=== PATIENT | male | born 1995 | race Caucasian/White ===

== ENCOUNTER 2019-11-08 03:15 | Inpatient (IN) | payer BC ==
--- NOTE | 2019-11-08 03:50 | ED ---
Psych HPI - General Source: patient, EMS Mode of arrival: EMS <Mahamed Guillaume - Last Filed: 11/08/19 03:44> <David Callaway - Last Filed: 11/14/19 05:27> - General Chief Complaint: Psychiatric Symptoms Stated Complaint: Mental Health Time Seen by Provider: 11/08/19 03:44 - History of Present Illness Initial Comments: Patient is a 24-year-old male presenting to emergency Department with chief complaint of suicidal thoughts. Patient states she has been stressed lately with paying his bills and is grossly. Patient states prior to ED arrival, he was face timing his ex girlfriend when he got into an argument and felt overwhelmed. Patient states he pointed a loaded gun to his head. The ex- girlfriend called the police. Patient states that the time the police and EMS got to his house, he had already put the gun away. Patient states he complied and came straight to the ED. Patient denies any history of suicidal thoughts or ideations. Denies any homicidal thoughts or ideations. Patient has no other complaints at this time (Mahamed Guillaume) - Related Data Previous Rx's Medication Instructions Recorded Nicotine Polacrilex [Nicorette] 2 mg BUCCAL Q4HR PRN 14 Days gum 11/10/19 Sertraline [Zoloft] 50 mg PO DAILY 28 Days tab 11/10/19 Allergies Allergy/AdvReac Type Severity Reaction Status Date / Time No Known Allergies Allergy Unverified 11/08/19 16:20 Review of Systems ROS Other: All systems not noted in ROS Statement are negative. <Mahamed Guillaume - Last Filed: 11/08/19 03:44> ROS Other: All systems not noted in ROS Statement are negative. <David Callaway - Last Filed: 11/14/19 05:27> ROS Statement: Those systems with pertinent positive or pertinent negative responses have been documented in the HPI. Past Medical History Past Medical History: No Reported History History of Any Multi-Drug Resistant Organisms: None Reported Past Surgical History: No Surgical Hx Reported Past Psychological History: No Psychological Hx Reported Smoking Status: Current every day smoker Past Alcohol Use History: Occasional Past Drug Use History: None Reported <Mahamed Guillaume - Last Filed: 11/08/19 03:44> General Exam Limitations: no limitations General appearance: alert, in no apparent distress Head exam: Present: atraumatic, normocephalic, normal inspection Eye exam: Present: normal appearance Pupils: Present: normal accommodation ENT exam: Present: normal exam Neck exam: Present: normal inspection, full ROM Respiratory exam: Present: normal lung sounds bilaterally Cardiovascular Exam: Present: regular rate, normal rhythm, normal heart sounds Extremities exam: Present: normal inspection, full ROM Back exam: Present: normal inspection, full ROM Neurological exam: Present: alert, oriented X3 Psychiatric exam: Present: normal affect, normal mood. Absent: depressed, agitated, anxious, flat affect Skin exam: Present: warm, dry, intact, normal color <Mahamed Guillaume - Last Filed: 11/08/19 03:44> Course Vital Signs 11/08/19 11/08/19 11/08/19 03:24 06:26 11:30 Temperature 98.1 F 98.2 F Pulse Rate 107 H 99 Pulse Rate [ 66 Left Sitting] Respiratory 18 18 20 Rate Blood Pressure 150/84 143/81 Blood Pressure 141/88 [Right Arm Sitting] O2 Sat by Pulse 97 97 98 Oximetry 11/08/19 11:39 Temperature 98.1 F Pulse Rate 88 Pulse Rate [ Left Sitting] Respiratory 18 Rate Blood Pressure 139/81 Blood Pressure [Right Arm Sitting] O2 Sat by Pulse 98 Oximetry Medical Decision Making <Mahamed Guillaume - Last Filed: 11/08/19 03:44> - Lab Data Result diagrams: 11/09/19 06:06 11/09/19 06:06 <David Callaway - Last Filed: 11/14/19 05:27> - Medical Decision Making Patient is 24-year-old male presenting to the emergency department for chief complaint of suicidal thoughts. Patient brought to the ED via EMS. Patient was face timing his ex-girlfriend when he got into an argument appointed a loaded gun to his head. Authorities were contacted and brought the patient to the ED. Denies history of suicidal thoughts or ideations. Has no complaints at this time. EPS is notified. At this time patient will be signed off to . (Mahamed Guillaume) I did see the patient for the purpose of following the clinical certificate. (David Callaway) Disposition <Mahamed Guillaume - Last Filed: 11/08/19 03:44> <David Callaway - Last Filed: 11/14/19 05:27> Clinical Impression: Mood disorder, Suicidal ideation Disposition: ADMITTED IP TO THIS HOSP Condition: Stable
[2019-11-08] MEDS ORDERED: ZIPRASIDONE 20 MG VIAL IM PRN (11:16)
[2019-11-08] MEDS ORDERED: LORazepam 1 MG TAB PO PRN (11:16)
[2019-11-08] MEDS ORDERED: MAG HYDROX/AL HYDROX/SIMETH 30 ML CUP PO PRN (11:16)
[2019-11-08] MEDS ORDERED: MAGNESIUM HYDROXIDE 2,400 MG/10 ML CUP PO PRN (11:16)
[2019-11-08] MEDS ORDERED: ACETAMINOPHEN TAB 325 MG TAB PO PRN (11:16)
[2019-11-08] MEDS ORDERED: NICOTINE POLACRILEX 2 MG GUM BUCCAL PRN (12:27)
[2019-11-08] MEDS ORDERED: MELATONIN 3 MG TABLET PO PRN (12:27)
--- NOTE | 2019-11-08 12:35 | P.HP ---
Psychiatric H&P - . 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 HPI: Patient presented to the hospital early this morning via EMS for suicidal ideations and depression. As per ER note patient was dealing with stressors including finances and having difficulties paying the bills. Patient also endorsed having fights with his girlfriend and apparently sent his girlfriend a picture of him holding a loaded gun to his head. Patient was agreeable to speak to bid writer on the unit and admitted to holding a gun to his head and states that after he did it "I immediately regretted it". He states that he "lost it yesterday" after going to a bar to eat food. He states that his mood has been "down" and states that his girlfriend left him and he has not been taking it well the past few weeks. Patient was guarded and concrete with his answers and was focused on discharge. Patient states that after he loaded the gun and put it to his head he put in [place] he was picked up by EMS and police after his ex-girlfriend called the probation and parole officer. He admits to a fair appetite and poor sleep at times and okay concentration. Patient denies any suicidal or homicidal ideations intent or plan. At this time patient denies any auditory or visual hallucinations. Patient denies any flight of ideas racing thoughts and increased in goal directed behavior. Patient admits to using cigarettes daily and alcohol occasionally, denies any other recreational substance use at this time. PAST PSYCHIATRIC HISTORY: Patient states that he does not have a mental health history and denies any previous inpatient psychiatric admissions. He states that he was previously on Adderall several years ago for ADHD however has not needed it any longer. He denies any psychiatric outpatient follow-up and denies any previous suicide attempts in the past. PMH:denies ALLERGIES: as per EMR CHEMICAL DEPENDENCY HISTORY: as per HPI FAMILY PSYCHIATRIC/SUBSTANCE USE HISTORY: denies SOCIAL HISTORY: Patient was born and raised in [place] and moved to [place]. He states that he has some college and dropped out after the first year. Patient is currently single has no kids and lives in a house and works 2 jobs to support himself. MENTAL STATUS EXAM: General Appearance: Patient appears to be stated age is alert, guarded. Patient appears to have poor hygiene and grooming. Behavior: Patient is seated without any agitated behavior. Guarded/evasive. Speech: Patient's speech is fluent and nonpressured. Mood/Affect: Patient reports their mood is depressed, affect is congruent and constricted. Suicidality/Homicidality: Patient denies having any homicidal ideation intent or plan. Denies any suicidal ideations intent or plan Perceptions: Patient denies any visual hallucinations and denies any auditory hallucinations Though content/process: There is no evidence of any delusional thought content and thought process is linear and goal-directed. Memory and concentration: AOX3, grossly intact for the purposes of this session. Can spell "WORLD" backwards Judgment and insight: poor STRENGTHS/WEAKNESSES: strength is that patient is resilient. Weakness is that patient has poor judgment and insight INTELLECT: average IMPRESSIONS: Major depressive disorder, without psychotic features Nicotine dependence PLAN: -Patient is admitted under voluntary status to [facility] for stabilization of psychiatric symptoms and safety. Patient signed adult voluntary form and medication consent and is placed in patient's chart. -Medications : Will start patient on Zoloft 50 mg daily for mood. -Ativan and Geodon PRN for agitation/aggression -Patient was informed of the risks, benefits and side effects of the medication and patient verbally consented to taking the medications. Patient signed med consent form and was placed in chart. -Internal Medicine consult to perform medical evaluation and physical. -NRT -Nicorette gum -SW on board for discharge planning. Encourage patient to participate in groups to work on coping skills. Likely discharge home when 2-3 days. Will need to ensure that the gun remains locked away at home prior to discharge. 11/08/19 12:28
[2019-11-08] MEDS: SERTRALINE 50 MG TAB PO SCH (12:49)
--- NOTE | 2019-11-08 17:06 | P.MDCNMH ---
History of Present Illness H&P Date: 11/08/19 Chief Complaint: medical management 24-year-old male with no significant PMH presents ED for suicidal ideation. He is admitted to mental health unit for subsequent workup and management. [facility] physicians has been consulted for medical management of this patient. Patient currently has no complaints. He denies any headache, lower extremity edema, nausea or vomiting, fever or chills, cough, chest pain, shortness of breath, palpitations, changes in urination or bowel habits. No changes in appetite or weight. No dizziness, numbness/weakness/tingling of extremities. Of note, patient reports smoking 1 pack of cigarettes daily for the past 7 years. He is refusing nicotine patch. States that he drinks 2-3 beers 2-3 times a week. Review of Systems Pertinent positives and negatives as discussed in HPI, a complete review of systems was performed and all other systems are negative. All systems: negative Past Medical History Past Medical History: No Reported History History of Any Multi-Drug Resistant Organisms: None Reported Past Surgical History: No Surgical Hx Reported Smoking Status: Current every day smoker Medications and Allergies Home Medications Medication Instructions Recorded Confirmed Type No Known Home Medications 11/08/19 11/08/19 History Allergies Allergy/AdvReac Type Severity Reaction Status Date / Time No Known Allergies Allergy Unverified 11/08/19 16:20 Physical Exam Vitals: Vital Signs Temp Pulse Pulse Resp BP BP Pulse Ox 11/08/19 11:39 98.1 F 88 18 139/81 98 11/08/19 11:30 98.2 F 66 20 141/88 98 11/08/19 06:26 99 18 143/81 97 11/08/19 03:24 98.1 F 107 H 18 150/84 97 Intake and Output 11/08/19 11/08/19 11/08/19 06:59 14:59 22:59 Other: Weight 86.183 kg 83.2 kg 83.2 kg General: [non toxic], [no distress], [appears at stated age] Derm: [warm], [dry] Head: [atraumatic], [normocephalic], [symmetric] Eyes: [EOMI], [no lid lag], [anicteric sclera] Mouth: [no lip lesion], [mucus membranes moist] Cardiovascular: [S1S2 reg], [no murmur], [positive posterior tibial pulse bilateral], Lungs: [CTA bilateral], [no rhonchi, no rales] , [no accessory muscle use] Abdominal: [soft], [ nontender to palpation], [no guarding], [no appreciable organomegaly] Ext: [no gross muscle atrophy], [no edema], [no contractures] Neuro: [ CN II-XI grossly intact], [no focal neuro deficits] Psych: [Alert], [oriented], [appropriate affect] Cranial Nerve Examination - Cranial Nerves Cranial Nerve II- Optic: Intact Cranial Nerve III- Oculomotor: Intact Cranial Nerve IV- Trochlear: Intact Cranial Nerve V- Trigeminal: Intact Cranial Nerve - Abducens: Intact Cranial Nerve VII- Facial: Intact Cranial Nerve VIII- Auditory: Intact Cranial Nerve IX- Glossopharyngeal: Intact Cranial Nerve X- Vagus: Intact Cranial Nerve XI- Accessory: Intact Cranial Nerve XII- Hypoglossal: Intact Assessment and Plan Assessment: Smoker Alcohol abuse Patient reports smoking pack of cigarettes daily for the past 7 years. I offered a nicotine patch but patient refuses. He does report drinking 3 beers 2-3 times a week. He is low risk for alcohol withdrawal. Psychiatry is following the patient for major depression and suicidal ideations. He is pending clinical improvement. Thank you for this consult. Please call with any additional questions or concerns.
[2019-11-09 07:11] LABS: Basophils # (A) 0.1 k/uL (0-0.2); Basophils % (A) 1 %; Eosinophils # (A) 0.3 k/uL (0-0.7); Eosinophils % (A) 4 %; HCT 47.9 % (39.0-53.0); HGB 16.1 gm/dL (13.0-17.5); Lymphocytes # (A) 2.7 k/uL (1.0-4.8); Lymphocytes % (A) 39 %; MCH 30.4 pg (25.0-35.0); MCHC 33.7 g/dL (31.0-37.0); MCV 90.4 fL (80.0-100.0); Mean Platelet Volume 7.3; Monocytes # (A) 0.6 k/uL (0-1.0); Monocytes % (A) 8 %; Neutrophils % (A) 44 %; Platelet Count 292 k/uL (150-450); RDW 12.2 % (11.5-15.5); WBC 6.9 k/uL (3.8-10.6)
[2019-11-09 07:25] LABS: ALT 25 U/L (4-49); AST 28 U/L (17-59); African American GFR (CKD) >90 (>60 ml/min/1.73 sqM); Albumin 4.8 g/dL (3.5-5.0); Alkaline Phosphatase 80 U/L (38-126); Anion Gap 11 mmol/L; Blood Urea Nitrogen 16 mg/dL (9-20); Calcium 9.9 mg/dL (8.4-10.2); Carbon Dioxide 26 mmol/L (22-30); Chloride 101 mmol/L (98-107); Glucose 93 mg/dL (74-99); Non-African American GFR(CKD) >90 (>60 ml/min/1.73 sqM); Potassium 4.3 mmol/L (3.5-5.1); Sodium 138 mmol/L (137-145); Total Bilirubin 0.9 mg/dL (0.2-1.3); Total Protein 7.8 g/dL (6.3-8.2)
[2019-11-09] MEDS: SERTRALINE 50 MG TAB PO SCH (08:48)
--- NOTE | 2019-11-09 10:51 | P.PN ---
Progress Note - Text Progress Note Date: 11/09/19 Interval History: Patient was seen attending group earlier this morning and was directable and a greeableto sports writer in the office. It appears to be more cooperative and appropriate during conversation. Patient spoke about his situation at home and also spoke about his gun which is still in the closet. Patient states that on he can have his mother remove the gun from his house. He also spoke about his mother coming to visit him today. He states that his mood has been improving since he started the medication. He states that he would like to remain on the same dose at this time. He denies any current side effects from medications. He states that he slept well throughout the night and denied any overnight complaints and claims to be eating well. At this time patient denies any suicidal or homical ideations, intent or plan. Patient denies any auditory, visual hallucinations and denies any paranoia or delusions. Patient denies any side effects from the medications and has been compliant with meds. Mental Status Exam: General Appearance: Patient appears to be stated age is alert, more directable and cooperative. Patient appears to have improving hygiene and grooming. Behavior: Patient is seated without any agitated behavior. Attempts to cooperate Speech: Patient's speech is fluent and nonpressured. Mood/Affect: Patient reports their mood is improving, affect is congruent and constricted. Suicidality/Homicidality: Patient denies having any homicidal ideation intent or plan. Denies any suicidal ideations intent or plan Perceptions: Patient denies any visual hallucinations and denies any auditory hallucinations Though content/process: There is no evidence of any delusional thought content and thought process is linear and goal-directed. More future Oriented Memory and concentration: AOX3, grossly intact for the purposes of this session. Judgment and insight: Improving mildly Assessment Major depressive disorder, without psychotic features Nicotine dependence Plan: -Patient continues to meet criteria for inpatient psychiatric admission for symptom stabilization and safety. Patient has signed adult voluntary form and medication consent and was placed in patient's chart. -Medications: Patient elected to continue on the same dose of Zoloft 50 mg daily for mood/anxiety. -When necessary Ativan and Geodon for agitation/aggression. -NRT -Nicorette gum -SW on board for discharge planning. Encourage patient to participate in groups to work on coping skills. Likely discharge home tomorrow. Will need to ensure that the gun at home is removed prior to discharge, delinquency prevention social worker to have patient sign release to speak to mother to have this matter taking care of.
[2019-11-09 12:25] LABS: Appearance,Urine Clear (Clear); Bilirubin,Urine Negative (Negative); Blood,Urine Negative (Negative); Color,Urine Light Yellow; Glucose,Urine (UA) Negative (Negative); Ketones,Urine Negative (Negative); Leukocyte Esterase,Urine Negative (Negative); Nitrite,Urine Negative (Negative); PH, Urine 6.5 (5.0-8.0); Protein,Urine Negative (Negative); Specific Gravity,Urine 1.014 (1.001-1.035); Urobilinogen,Urine <2.0 mg/dL (<2.0)
[2019-11-09 12:35] LABS: Amphetamine Screen,Urine Not Detected (NotDetected); Barbiturate Screen,Urine Not Detected (NotDetected); Benzodiazepines Screen,Urine Not Detected (NotDetected); Cocaine Screen,Urine Not Detected (NotDetected); Methadone Screen, Urine Not Detected (NotDetected); Opiate Screen,Urine Not Detected (NotDetected); Oxycodone Screen, Urine Not Detected (NotDetected); Phencyclidine Screen,Urine Not Detected (NotDetected); Tricyclic Antidepressant,Urine Not Detected (NotDetected); Urn Cannabinoid Scrn Not Detected (NotDetected)
[2019-11-10 07:11] VITALS: BP 114/55; PULSE 59; RESP 18; TEMP 98.4
[2019-11-10] MEDS: SERTRALINE 50 MG TAB PO SCH (08:08)
--- NOTE | 2019-11-10 10:08 | P.DS ---
Providers Date of admission: 11/08/19 11:10 Expected date of discharge: 11/10/19 Attending physician: Justin August MD Consults: 11/08/19 11:16 Consult Physician Routine Consulting Provider: Liborio Hartman Consult Reason/Comments: H and P Do you want consulting provider notified?: Yes Primary care physician: Physician Nonstaff - Discharge Diagnosis(es) (1) Major depressive disorder without psychotic features Current Visit: Yes Status: Acute Priority: High (2) Nicotine dependence Current Visit: Yes Status: Acute Priority: Low Hospital Course: Admission HPI: Patient is a 24-year-old male who is currently single and 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 Patient presented to the hospital early this morning via EMS for suicidal ideations and depression. As per ER note patient was dealing with stressors including finances and having difficulties paying the bills. Patient also endorsed having fights with his girlfriend and apparently sent his girlfriend a picture of him holding a loaded gun to his head. Patient was agreeable to speak to appeals writer on the unit and admitted to holding a gun to his head and states that after he did it "I immediately regretted it". He states that he "lost it yesterday" after going to a bar to eat food. He states that his mood has been "down" and states that his girlfriend left him and he has not been taking it well the past few weeks. Patient was guarded and concrete with his answers and was focused on discharge. Patient states that after he loaded the gun and put it to his head he put in [place] he [place] picked up by EMS and police after his ex-girlfriend called the head of marketing. He admits to a fair appetite and poor sleep at times and okay concentration. Patient denies any suicidal or homicidal ideations intent or plan. At this time patient denies any auditory or visual hallucinations. Patient denies any flight of id eas racing thoughts and increased in goal directed behavior. Patient admits to using cigarettes daily and alcohol occasionally, denies any other recreational substance use at this time. Hospital course: Upon admission to the unit patient was initially depressed and cooperative. Patient was directable and agreeable to commence treatment. Patient got along well with other patients on the unit and followed unit protocol. Patient was compliant with the medications and denied any side effects throughout hospital course. Patient was started on Zoloft 50 mg daily for mood and patient requested to stay at the same dose. Patient spoke of his stressors and engaged in therapy both group and individual. Patient was also seen by medical team for history and physical exam. Throughout the course of the hospitalization patient gradually improved with regards to mood, anxiety, sleep and became future oriented with improved insight and judgment. On the day of discharge patient denied any suicidal or homicidal ideations intent or plan denied any auditory or visual hallucinations. Patient endorsed wanting to live for his future and his job/career. The patient did have a gun which he placed in the closet or to leaving his house. Patient is agreeable to give mother the robertson to his house to remove his gun, family welfare social work professor arranging for this to occur. Detail Sergeant spoke with patient in depth about gun safety and patient was agreeable to have the gun removed. Patient denied any paranoia and did not endorse any delusions. Patient does not have a significant history of substance abuse however was counseled on abstaining from all substances including alcohol and marijuana. Patient was also counseled on the medications and need for regular compliance and was encouraged to follow-up with their outpatient appointment for mental health and also for primary care. Prior to discharge a family meeting will be arranged by family welfare social work professor to answer any questions and ensure safety upon discharge. Mental status exam: General Appearance: Patient appears to be stated age is alert, directable, and cooperative. Patient is in no acute distress and has fair hygiene and grooming Behavior: Patient is calmly seated without any agitated behavior. Speech: Patient's speech is fluent and nonpressured. Mood/Affect: Patient reports their mood is "good", affect is congruent and euthymic. Suicidality/Homicidality: Patient denies having any suicidal or homicidal ideation intent or plan. Perceptions: Patient denies any auditory or visual hallucinations. Though content/process: There is no evidence of any delusional thought content and thought process is linear and goal-directed. Memory and concentration: AOX3, grossly intact for the purposes of this session. Can spell "WORLD" backwards correctly. Judgment and insight: fair, improved Impression: Major depressive disorder, without psychotic features Nicotine dependence Plan: -Continue with discharge today as patient has improved and stabilized psychiatrically and is not currently an imminent threat to himself and/or others. -Continue medications: Zoloft 50 mg daily for mood/anxiety. -Patient was counseled on the need for medication compliance and appropriate follow-up at mental health and also primary care for medical issues. Patient verbalized understanding and agreed. -Social work to arrange for and conduct family meeting to ensure safety upon discharge and answer any questions/concerns. Social work also to arrange for patients follow up appointments for psychiatric care along with follow up with primary care provider. -Patient counseled on abstaining from recreational drugs and marijuana and alcohol. Was informed/educated on the adverse effects on their physical and mental health. Patient verbally agreed and understood. -Patient was instructed to return to the hospital or seek immediate medical care if their psychiatric or medical symptoms do worsen or reoccur. Allergies Allergy/AdvReac Type Severity Reaction Status Date / Time No Known Allergies Allergy Unverified 11/08/19 16:20 Laboratory Results WBC 6.9 k/uL (3.8-10.6) 11/09/19 06:06 RBC 5.30 m/uL (4.30-5.90) 11/09/19 06:06 Hgb 16.1 gm/dL (13.0-17.5) 11/09/19 06:06 Hct 47.9 % (39.0-53.0) 11/09/19 06:06 MCV 90.4 fL (80.0-100.0) 11/09/19 06:06 MCH 30.4 pg (25.0-35.0) 11/09/19 06:06 MCHC 33.7 g/dL (31.0-37.0) 11/09/19 06:06 RDW 12.2 % (11.5-15.5) 11/09/19 06:06 Plt Count 292 k/uL (150-450) 11/09/19 06:06 Neutrophils % 44 % 11/09/19 06:06 Lymphocytes % 39 % 11/09/19 06:06 Monocytes % 8 % 11/09/19 06:06 Eosinophils % 4 % 11/09/19 06:06 Basophils % 1 % 11/09/19 06:06 Neutrophils # 3.0 k/uL (1.3-7.7) 11/09/19 06:06 Lymphocytes # 2.7 k/uL (1.0-4.8) 11/09/19 06:06 Monocytes # 0.6 k/uL (0-1.0) 11/09/19 06:06 Eosinophils # 0.3 k/uL (0-0.7) 11/09/19 06:06 Basophils # 0.1 k/uL (0-0.2) 11/09/19 06:06 Sodium 138 mmol/L (137-145) 11/09/19 06:06 Potassium 4.3 mmol/L (3.5-5.1) 11/09/19 06:06 Chloride 101 mmol/L (98-107) 11/09/19 06:06 Carbon Dioxide 26 mmol/L (22-30) 11/09/19 06:06 Anion Gap 11 mmol/L 11/09/19 06:06 BUN 16 mg/dL (9-20) 11/09/19 06:06 Creatinine 0.88 mg/dL (0.66-1.25) 11/09/19 06:06 Est GFR (CKD-EPI)AfAm >90 (>60 ml/min/1.73 sqM) 11/09/19 06:06 Est GFR (CKD-EPI)NonAf >90 (>60 ml/min/1.73 sqM) 11/09/19 06:06 Glucose 93 mg/dL (74-99) 11/09/19 06:06 Calcium 9.9 mg/dL (8.4-10.2) 11/09/19 06:06 Total Bilirubin 0.9 mg/dL (0.2-1.3) 11/09/19 06:06 AST 28 U/L (17-59) 11/09/19 06:06 ALT 25 U/L (4-49) 11/09/19 06:06 Alkaline Phosphatase 80 U/L (38-126) 11/09/19 06:06 Total Protein 7.8 g/dL (6.3-8.2) 11/09/19 06:06 Albumin 4.8 g/dL (3.5-5.0) 11/09/19 06:06 TSH 4.970 mIU/L (0.465-4.680) H 11/09/19 06:06 Urine Color Light Yellow 11/09/19 12:03 Urine Appearance Clear (Clear) 11/09/19 12:03 Urine pH 6.5 (5.0-8.0) 11/09/19 12:03 Ur Specific [place] 1.014 (1.001-1.035) 11/09/19 12:03 Urine Protein Negative (Negative) 11/09/19 12:03 Urine Glucose (UA) Negative (Negative) 11/09/19 12:03 Urine Ketones Negative (Negative) 11/09/19 12:03 Urine Blood Negative (Negative) 11/09/19 12:03 Urine Nitrite Negative (Negative) 11/09/19 12:03 Urine Bilirubin Negative (Negative) 11/09/19 12:03 Urine Urobilinogen <2.0 mg/dL (<2.0) 11/09/19 12:03 Ur Leukocyte Esterase Negative (Negative) 11/09/19 12:03 Urine Opiates Screen Not Detected (NotDetected) 11/09/19 12:03 Ur Oxycodone Screen Not Detected (NotDetected) 11/09/19 12:03 Urine Methadone Screen Not Detected (NotDetected) 11/09/19 12:03 Ur Propoxyphene Screen Not Detected (NotDetected) 11/09/19 12:03 Ur Barbiturates Screen Not Detected (NotDetected) 11/09/19 12:03 U Tricyclic Antidepress Not Detected (NotDetected) 11/09/19 12:03 Ur Phencyclidine Scrn Not Detected (NotDetected) 11/09/19 12:03 Ur Amphetamines Screen Not Detected (NotDetected) 11/09/19 12:03 U Methamphetamines Scrn Not Detected (NotDetected) 11/09/19 12:03 U Benzodiazepines Scrn Not Detected (NotDetected) 11/09/19 12:03 Urine Cocaine Screen Not Detected (NotDetected) 11/09/19 12:03 U Marijuana (THC) Screen Not Detected (NotDetected) 11/09/19 12:03 Vital Signs Temp 98.4 F 11/10/19 07:10 Pulse 59 L 11/10/19 07:10 Resp 18 11/10/19 07:10 BP 114/55 11/10/19 07:10 Pulse Ox 95 11/10/19 07:10 Patient Condition at Discharge: Stable Plan - Discharge Summary New Discharge Prescriptions: New Nicotine Polacrilex [Nicorette] 2 mg BUCCAL Q4HR PRN 14 Days gum PRN Reason: Nicotine Cravings Sertraline [Zoloft] 50 mg PO DAILY 28 Days tab Discharge Medication List Nicotine Polacrilex [Nicorette] 2 mg BUCCAL Q4HR PRN 14 Days gum 11/10/19 [Rx] Sertraline [Zoloft] 50 mg PO DAILY 28 Days tab 11/10/19 [Rx] Follow up Appointment(s)/Referral(s): [facility] [NON-STAFF] - 1 Week Patient Instructions/Handouts: Depression (DC) Activity/Diet/Wound Care/Special Instructions: Activity and diet as tolerated. Avoid the use of street drugs and alcohol. Take all medications as prescribed. When you are in need of refills on your medications please contact your medical provider and/or outpatient psychiatrist to have this done. Please go to scheduled outpatient appointment for aftercare treatment. If symptoms return or become worse, call the crisis line at and/or go to the nearest emergency room for evaluation. Discharge Disposition: HOME SELF-CARE
== END 2019-11-10 12:04 | disposition home or self-care (01) | DRG 881 ==
LOC: EC 03:15 → 3MHU 11:10
PROVIDERS: ADMIT Psychiatry & Neurology Psychiatry; ATTEND Psychiatry & Neurology Psychiatry
DX: F32.9 Major depressive disorder, single episode, unspecified (principal); R45.851 Suicidal ideations; F10.10 Alcohol abuse, uncomplicated; F41.9 Anxiety disorder, unspecified; F17.210 Nicotine dependence, cigarettes, uncomplicated; Z71.6 Tobacco abuse counseling
CPT/HCPCS: 80053; 80306; 81003; 82075; 84443; 85025; 99285